=== PATIENT | male | born 1960 | race American Indian/Alaskan Native ===

== ENCOUNTER 2018-02-12 13:44 | Emergency (ER) | payer MEDICAID ==
[~2018-02-12] VITALS: Ht 193 cm; Wt 100.0 kg
[~2018-02-12 13:44] MED LIST: MECL-111 PO; SUCR1ORA2 PO
[2018-02-12 14:30] LABS: BASOPHILS # (AUTO) 0.1 X10'3 (0-0.2); BASOPHILS % (AUTO) 0.8 % (0-1); EOSINOPHILS # (AUTO) 0.1 X10'3 (0-0.9); EOSINOPHILS % (AUTO) 1.6 % (0-6); HEMATOCRIT 47.3 % (42.0-52.0); LYMPHOCYTES # (AUTO) 0.7 X10'3 (1.1-4.8); MEAN CORPUSCULAR HEMOGLOBIN 30.7 PG (27.0-31.0); MEAN CORPUSCULAR HGB CONC 33.9 % (33.0-36.5); MEAN CORPUSCULAR VOLUME 90.5 FL (78-98); MEAN PLATELET VOLUME 7.6 FL (7.4-10.4); MONOCYTES # (AUTO) 0.8 X10'3 (0-0.9); MONOCYTES % (AUTO) 10.7 % (2-12); NEUTROPHILS # (AUTO) 5.5 X10'3 (1.8-7.7); NEUTROPHILS % (AUTO) 76.9 % (42-75); PLATELET COUNT 244 X10'3 (140-440); RED BLOOD COUNT 5.22 X10'6 (4.70-6.10); RED CELL DISTRIBUTION WIDTH 12.9 % (11.5-14.5); WHITE BLOOD COUNT 7.1 X10'3 (4.5-11.0)
[2018-02-12 14:52] LABS: ALANINE AMINOTRANSFERASE 141 U/L (12-78); ALBUMIN 3.7 G/DL (3.4-5.0); ALKALINE PHOSPHATASE 169 IU/L (46-116); ANION GAP 13 (8-16); ASPARTATE AMINO TRANSFERASE 59 U/L (10-37); BILIRUBIN,TOTAL 0.7 MG/DL (0.1-1.0); BLOOD UREA NITROGEN 17 MG/DL (7-18); BUN/CREATININE RATIO 16.5 (5.4-32.0); CALCIUM 8.8 MG/DL (8.5-10.1); CHLORIDE 103 MMOL/L (99-107); CREATININE 1.03 MG/DL (0.60-1.10); GLUCOSE 90 MG/DL (70-104); SODIUM 140 MMOL/L (135-145); TOTAL CARBON DIOXIDE 23.8 MMOL/L (24-32); TOTAL PROTEIN 7.5 G/DL (6.4-8.2); eGFR 74 ML/MIN
[2018-02-12] MEDS ORDERED: meclizine 12.5mg tablet PO ONE (15:30)
[2018-02-12] MEDS ORDERED: ketorolac trometh inj. 60 MG/2 ML VIAL IM ONE (15:30)
[2018-02-12] MEDS ORDERED: MECL-111 PO (15:31)
[2018-02-12 16:22] VITALS: BP 134/91
== END 2018-02-12 16:23 | disposition home or self-care (01) ==
LOC: ER 13:45
DX: R51 Headache (principal); R42 Dizziness and giddiness; F12.10 Cannabis abuse, uncomplicated; G89.29 Other chronic pain; Z90.49 Acquired absence of other specified parts of digestive tract; Z79.899 Other long term (current) drug therapy
CPT/HCPCS: 36415; 70450; 80053; 85025; 93005; 96372; 99284; J1885; J8597

== ENCOUNTER 2018-04-05 12:34 | Outpatient (CLI) | payer MEDICAID | END 2018-04-05 23:59 | disposition home or self-care (01) | LOC: CARD DIAG 12:34 | PROVIDERS: ATTEND Internal Medicine Critical Care Medicine | DX: I07.1 Rheumatic tricuspid insufficiency (principal) | CPT/HCPCS: 93306 ==

== ENCOUNTER 2018-04-20 10:26 | Emergency (ER) | payer MEDICAID ==
[~2018-04-20] VITALS: Ht 193 cm; Wt 114.0 kg
[2018-04-20] MEDS ORDERED: ibuprofen tablet 400 MG TABLET PO ONE (12:30)
[2018-04-20 13:47] VITALS: BP 149/97
== END 2018-04-20 13:50 | disposition home or self-care (01) ==
LOC: ER 10:26
DX: S13.4XXA Sprain of ligaments of cervical spine, initial encounter (principal); M25.512 Pain in left shoulder; R07.89 Other chest pain; G89.29 Other chronic pain; F12.90 Cannabis use, unspecified, uncomplicated; Z90.49 Acquired absence of other specified parts of digestive tract; Z98.890 Other specified postprocedural states; V49.9XXA Car occupant (driver) (passenger) injured in unspecified traffic accident, initial encounter; Y93.89 Activity, other specified; Y92.488 Other paved roadways as the place of occurrence of the external cause; Y99.8 Other external cause status
CPT/HCPCS: 71045; 72040; 99283

== ENCOUNTER 2021-05-29 15:24 | Inpatient (IN) | payer MEDICAID ==
[~2021-05-29] VITALS: Ht 193 cm; Wt 109.1 kg
[~2021-05-29 15:24] MED LIST changes: -MECL-111 PO; +MECL-159 PO
--- NOTE | 2021-05-29 15:40 | NUR ---
PT MOVED TO BED 8 SBAR TO [facility].
--- NOTE | 2021-05-29 15:45 | NUR ---
TO CT SCAN.
--- NOTE | 2021-05-29 15:50 | NUR ---
TELEMED SET UP A new connect request was successfully created for: BARRY JADE : 1960 ConnectID: [id number] REASON: Code Stroke TLKW less than 4.5 hours ACUITY: Acuity Level 1 SUBMITTED: 05/29/2021 15:50 PDT
[2021-05-29 15:56] LABS: BASOPHILS # (AUTO) 0.1 X10'3 (0-0.2); BASOPHILS % (AUTO) 1.1 % (0-1); EOSINOPHILS # (AUTO) 0.1 X10'3 (0-0.9); EOSINOPHILS % (AUTO) 1.9 % (0-6); HEMATOCRIT 46.6 % (42.0-52.0); HEMOGLOBIN 15.7 g/dl (14.0-17.9); LYMPHOCYTES # (AUTO) 1.6 X10'3 (1.1-4.8); LYMPHOCYTES % (AUTO) 24.9 % (21-51); MEAN CORPUSCULAR HEMOGLOBIN 30.6 PG (27.0-31.0); MEAN CORPUSCULAR HGB CONC 33.7 g/dL (33.0-36.5); MEAN CORPUSCULAR VOLUME 90.8 FL (78-98); MONOCYTES # (AUTO) 0.5 X10'3 (0-0.9); MONOCYTES % (AUTO) 7.7 % (2-12); NEUTROPHILS # (AUTO) 4.2 X10'3 (1.8-7.7); NEUTROPHILS % (AUTO) 64.4 % (42-75); PLATELET COUNT 240 X10'3 (140-440); RED BLOOD COUNT 5.13 X10'6 (4.70-6.10); RED CELL DISTRIBUTION WIDTH 13.5 % (11.5-14.5); WHITE BLOOD COUNT 6.5 X10'3 (4.5-11.0)
[2021-05-29 16:03] LABS: APTT 29 SECONDS (22-32)
[2021-05-29 16:04] LABS: ALANINE AMINOTRANSFERASE 70 U/L (12-78); ALBUMIN 4.2 G/DL (3.4-5.0); ALBUMIN/GLOBULIN RATIO 1.4 (1.1-1.5); ALKALINE PHOSPHATASE 109 IU/L (46-116); ANION GAP 5 (8-16); ASPARTATE AMINO TRANSFERASE 36 U/L (10-37); BILIRUBIN,TOTAL 0.6 MG/DL (0.1-1.0); BLOOD UREA NITROGEN 15 MG/DL (7-18); BUN/CREATININE RATIO 15.5 (5.4-32.0); CALCIUM 8.8 MG/DL (8.5-10.1); CHLORIDE 110 MMOL/L (99-107); CREATININE 0.97 MG/DL (0.60-1.10); GLUCOSE 95 MG/DL (70-104); SODIUM 142 MMOL/L (135-145); TOTAL CARBON DIOXIDE 26.6 MMOL/L (24-32); TOTAL PROTEIN 7.2 G/DL (6.4-8.2); eGFR 78 ML/MIN
[2021-05-29 16:06] LABS: POTASSIUM 4.4 MMOL/L (3.5-5.1)
[2021-05-29] MEDS ORDERED: iohexol 350MG/ML 100ml bottle IV ONE (16:22)
--- NOTE | 2021-05-29 16:27 | NUR ---
pt went for CTA Addendum: 05/29/21 at 1628 by REYIXROSALINA pt to CTA accompanied by Stroke Nurse
--- NOTE | 2021-05-29 16:32 | NUR ---
patient back to room with stroke nurse Pippa, son at bedside.
--- NOTE | 2021-05-29 17:03 | NUR ---
MEDICAL RECORDS REQUEST FAXED TO [facility]
[2021-05-29] MEDS ORDERED: magnesium 2GM in 50ml NS 50 ML IV PRN (17:05)
[2021-05-29] MEDS ORDERED: acetaminophen 325mg tablet PO PRN ×2 (17:05)
[2021-05-29] MEDS ORDERED: metoclopramide 5 mg/ml inj IV PRN (17:05)
[2021-05-29] MEDS ORDERED: ondansetron/PF 4mg/2ml inj IV PRN (17:05)
[2021-05-29] MEDS ORDERED: potassium CL 10mEq/100ml bag 100 ML IV PRN (17:05)
[2021-05-29] MEDS ORDERED: HYDROcodone/acetaminophen 10/325mg tab PO PRN (17:05)
[2021-05-29] MEDS ORDERED: magnesium 4gm in 100ml NS 100 ML IV PRN (17:05)
[2021-05-29] MEDS ORDERED: mag hydrox/Alum hydrox/simeth 30ml oral suspension PO PRN (17:05)
[2021-05-29] MEDS ORDERED: ondansetron 4mg rapidly disintigrating tab PO PRN (17:05)
[2021-05-29] MEDS ORDERED: morphine 2 MG/ML inj. syringe IV PRN ×2 (17:05)
[2021-05-29] MEDS ORDERED: magnesium hydroxide 30ml (MOM) UD suspension PO PRN (17:05)
[2021-05-29] MEDS ORDERED: aspirin 81mg, enteric-coated 1 TAB TABLET.DR PO ONE (17:05)
[2021-05-29] MEDS ORDERED: potassium Cl 20 mEq SR tablet PO PRN ×2 (17:05)
[2021-05-29] MEDS ORDERED: magnesium Cl slow-release 64mg tablet PO PRN (17:05)
[2021-05-29] MEDS ORDERED: bisacodyl 10mg suppository rectal RC PRN (17:05)
[2021-05-29] MEDS ORDERED: HYDROcodone/acetaminophen 5mg/325mg tablet PO PRN (17:05)
[2021-05-29] MEDS ORDERED: ATOR80TA PO (17:13)
[2021-05-29] MEDS ORDERED: ASPI-101 PO (17:13)
[2021-05-29] MEDS: normal saline 1000ml 1,000 ML IV SCH (17:27)
[2021-05-29 17:45] LABS: MAGNESIUM 2.5 MG/DL (1.5-2.4)
[2021-05-29] MEDS: K and/or MAG REPLACEMENT MC SCH (20:00)
[2021-05-29] MEDS ORDERED: temazepam 15mg capsule PO PRN (21:00)
[2021-05-29 21:04] VITALS: BP 135/90
[2021-05-29] MEDS: docusate sod 100mg capsule PO SCH (21:41)
[2021-05-29 22:00] VITALS: BP 124/89
[2021-05-30 02:00] VITALS: BP 122/78
[2021-05-30] MEDS: normal saline 1000ml 1,000 ML IV SCH ×2 (03:27→13:05)
[2021-05-30 05:49] LABS: BASOPHILS % (AUTO) 0.8 % (0-1); EOSINOPHILS # (AUTO) 0.1 X10'3 (0-0.9); HEMATOCRIT 42.2 % (42.0-52.0); HEMOGLOBIN 14.3 g/dl (14.0-17.9); LYMPHOCYTES # (AUTO) 1.1 X10'3 (1.1-4.8); LYMPHOCYTES % (AUTO) 25.2 % (21-51); MEAN CORPUSCULAR HEMOGLOBIN 30.6 PG (27.0-31.0); MEAN CORPUSCULAR HGB CONC 33.9 g/dL (33.0-36.5); MEAN CORPUSCULAR VOLUME 90.4 FL (78-98); MEAN PLATELET VOLUME 7.8 FL (7.4-10.4); MONOCYTES # (AUTO) 0.3 X10'3 (0-0.9); MONOCYTES % (AUTO) 7.7 % (2-12); NEUTROPHILS # (AUTO) 2.8 X10'3 (1.8-7.7); NEUTROPHILS % (AUTO) 64.3 % (42-75); PLATELET COUNT 207 X10'3 (140-440); RED BLOOD COUNT 4.67 X10'6 (4.70-6.10); RED CELL DISTRIBUTION WIDTH 13.7 % (11.5-14.5); WHITE BLOOD COUNT 4.4 X10'3 (4.5-11.0)
[2021-05-30 06:00] VITALS: BP 112/76
[2021-05-30 06:09] LABS: ALANINE AMINOTRANSFERASE 61 U/L (12-78); ALBUMIN 3.5 G/DL (3.4-5.0); ALBUMIN/GLOBULIN RATIO 1.5 (1.1-1.5); ALKALINE PHOSPHATASE 75 IU/L (46-116); ANION GAP 10 (8-16); ASPARTATE AMINO TRANSFERASE 31 U/L (10-37); BILIRUBIN,TOTAL 0.8 MG/DL (0.1-1.0); BLOOD UREA NITROGEN 13 MG/DL (7-18); BUN/CREATININE RATIO 16.3 (5.4-32.0); CALCIUM 8.1 MG/DL (8.5-10.1); CHLORIDE 112 MMOL/L (99-107); CHOL/HDL RATIO 2.2 (0.00-4.99); CHOLESTEROL 65 MG/DL (0-200); GLUCOSE 107 MG/DL (70-104); HDL CHOLESTEROL 29 MG/DL (35-60); LDL CHOLESTEROL 31 MG/DL (50-100); MAGNESIUM 2.2 MG/DL (1.5-2.4); POTASSIUM 3.7 MMOL/L (3.5-5.1); SODIUM 145 MMOL/L (135-145); TOTAL CARBON DIOXIDE 23.5 MMOL/L (24-32); TOTAL PROTEIN 5.9 G/DL (6.4-8.2); TRIGLYCERIDES 50 MG/DL (20-135); eGFR > 90 ML/MIN
[2021-05-30] MEDS ORDERED: atorvastatin 20mg tablet PO SCH (08:00)
[2021-05-30] MEDS ORDERED: aspirin 81mg, enteric-coated 1 TAB TABLET.DR PO SCH (08:00)
[2021-05-30] MEDS: K and/or MAG REPLACEMENT MC SCH (08:00)
[2021-05-30] MEDS ORDERED: aspirin 325mg tablet, delayed-release (Ecotrin) PO SCH (08:00)
[2021-05-30] MEDS: docusate sod 100mg capsule PO SCH (09:18)
--- NOTE | 2021-05-30 11:00 | NUR ---
Pt transported to MRI via wheelchair with tech.
[2021-05-30 12:00] VITALS: BP 123/99
== END 2021-05-30 15:42 | disposition home or self-care (01) | DRG 45 ==
LOC: ER 15:25 → ED HOLD 17:09 → PCU 3S 20:45
PROVIDERS: ADMIT Family Medicine; ATTEND Family Medicine
PROC: B3251ZZ Computerized Tomography (CT Scan) of Bilateral Common Carotid Arteries using Low Osmolar Contrast (ICD-10-PCS; principal; 2021-05-29)
PROC: B32G1ZZ Computerized Tomography (CT Scan) of Bilateral Vertebral Arteries using Low Osmolar Contrast (ICD-10-PCS; 2021-05-29)
PROC: B32R1ZZ Computerized Tomography (CT Scan) of Intracranial Arteries using Low Osmolar Contrast (ICD-10-PCS; 2021-05-29)
PROC: B3281ZZ Computerized Tomography (CT Scan) of Bilateral Internal Carotid Arteries using Low Osmolar Contrast (ICD-10-PCS; 2021-05-29)
DX: I63.9 Cerebral infarction, unspecified (principal); I69.351 Hemiplegia and hemiparesis following cerebral infarction affecting right dominant side; R29.704 NIHSS score 4; E78.5 Hyperlipidemia, unspecified; G89.29 Other chronic pain; F12.90 Cannabis use, unspecified, uncomplicated; Z90.49 Acquired absence of other specified parts of digestive tract; Z79.899 Other long term (current) drug therapy
CPT/HCPCS: 36415; 70450; 70496; 70498; 70551; 71045; 80053; 80061; 82948; 83735; 84443; 84484; 85025; 85610; 85730; 87081; 92508; 92616; 93005; 99285; G0378; J7030; Q9967

== ENCOUNTER 2023-04-01 10:57 | Emergency (ER) | payer MEDICARE, MEDICAID ==
[~2023-04-01] VITALS: Ht 190.5 cm; Wt 104.9 kg
[~2023-04-01 10:57] MED LIST changes: +ASPI-101 PO; +ATOR80TA PO; -MECL-159 PO; -SUCR1ORA2 PO
[2023-04-01 11:53] LABS: BILIRUBIN,URINE NEGATIVE (Neg); COLOR,URINE YELLOW (Yellow); GLUCOSE, URINE NEGATIVE (Neg); KETONES,URINE NEGATIVE (Neg); LEUKOCYTE ESTERASE ,URINE NEGATIVE (Neg); NITRITES, URINE NEGATIVE (Neg); OCCULT BLOOD,URINE NEGATIVE (Neg); PROTEIN,URINE NEGATIVE (Neg); UROBILINOGEN,URINE 0.2 E.U/dL (0.2-1.0)
[2023-04-01 12:01] LABS: UA COLLECTION TYPE CLN CATCH MIDSTREAM
[2023-04-01 12:24] LABS: BASOPHILS # (AUTO) 0.1 X10'3 (0-0.2); BASOPHILS % (AUTO) 1.2 % (0-1); EOSINOPHILS # (AUTO) 0.1 X10'3 (0-0.9); EOSINOPHILS % (AUTO) 1.1 % (0-6); HEMATOCRIT 48.1 % (42.0-52.0); HEMOGLOBIN 16.2 g/dl (14.0-17.9); LYMPHOCYTES % (AUTO) 19.7 % (21-51); MEAN CORPUSCULAR HEMOGLOBIN 31.3 PG (27.0-31.0); MEAN CORPUSCULAR HGB CONC 33.6 g/dL (33.0-36.5); MEAN PLATELET VOLUME 7.8 FL (7.4-10.4); MONOCYTES # (AUTO) 0.3 X10'3 (0-0.9); MONOCYTES % (AUTO) 6.4 % (2-12); NEUTROPHILS # (AUTO) 3.5 X10'3 (1.8-7.7); NEUTROPHILS % (AUTO) 71.6 % (42-75); PLATELET COUNT 220 X10'3 (140-440); RED BLOOD COUNT 5.17 X10'6 (4.70-6.10); RED CELL DISTRIBUTION WIDTH 13.2 % (11.5-14.5); WHITE BLOOD COUNT 4.9 X10'3 (4.5-11.0)
[2023-04-01 12:31] LABS: CLARITY,URINE SLIGHTLY CLOUDY (Clear)
[2023-04-01 12:32] LABS: WBC CLUMPS,URINE FEW /HPF (NEGATIVE); WBC,URINE 30-50 /HPF (0-4)
[2023-04-01 12:33] LABS: BACTERIA,URINE FEW /HPF (Neg); RBC,URINE 0-2 /HPF (0-2); SQUAMOUS EPITHELIAL CELL,UR FEW /LPF (FEW)
[2023-04-01 12:48] LABS: ALBUMIN 3.9 G/DL (3.4-5.0); ANION GAP 10 (8-16); BLOOD UREA NITROGEN 16 MG/DL (7-18); CALCIUM 8.6 MG/DL (8.5-10.1); CHLORIDE 108 MMOL/L (99-107); CREATININE 0.94 MG/DL (0.60-1.10); GLUCOSE 161 MG/DL (70-104); LIPASE 51 U/L (16-77); POTASSIUM 4.3 MMOL/L (3.5-5.1); SODIUM 144 MMOL/L (135-145); TOTAL CARBON DIOXIDE 25.8 MMOL/L (24-32); eCRCL 97 ML/MIN; eGFR 81 ML/MIN
[2023-04-01] MEDS: normal saline 1000ml 1,000 ML IV ONE (20:52)
[2023-04-01] MEDS: ondansetron/PF 4mg/2ml inj IV ONE (20:53)
[2023-04-01] MEDS: morphine 4 MG/ML inj SYRINge IV ONE (20:54)
[2023-04-01] MEDS: CefTRIAXone 2gm/D5W 50ml BAG 50 ML IV ONE (21:56)
[2023-04-01] MEDS ORDERED: CEPH-585 PO (22:03)
[2023-04-01] MEDS: cloNIDine 0.1 mg tablet PO ONE (22:35)
[2023-04-01 22:45] VITALS: BP 136/95; PULSE 56; RESP 18; TEMP 98; O2SAT 98
== END 2023-04-01 22:49 | disposition home or self-care (01) ==
LOC: ER 10:58
DX: N39.0 Urinary tract infection, site not specified (principal); I71.20 Thoracic aortic aneurysm, without rupture, unspecified; N20.0 Calculus of kidney; F12.90 Cannabis use, unspecified, uncomplicated; Z79.82 Long term (current) use of aspirin; Z79.899 Other long term (current) drug therapy; Z98.890 Other specified postprocedural states; Z90.49 Acquired absence of other specified parts of digestive tract
CPT/HCPCS: 36415; 74176; 80048; 81001; 83690; 85025; 87077; 87088; 87186; 96361; 96374; 96375; 99285; J0696; J2270; J2405; J7030

== ENCOUNTER 2023-07-30 15:23 | Inpatient (IN) | payer MEDICARE, MEDICAID ==
[~2023-07-30] VITALS: Ht 190.5 cm; Wt 103.8 kg
[2023-07-30] VITALS (11 sets, daily range): BP systolic 112–124; BP diastolic 76–86; PULSE 45–57; RESP 14–20; O2SAT 94–98
[2023-07-30] MEDS ORDERED: iohexol 350MG/ML 100ml bottle IV ONE (15:26)
[2023-07-30 15:59] LABS: BASOPHILS # (AUTO) 0.1 X10'3 (0-0.2); BASOPHILS % (AUTO) 0.9 % (0-1); EOSINOPHILS # (AUTO) 0.1 X10'3 (0-0.9); EOSINOPHILS % (AUTO) 0.9 % (0-6); HEMATOCRIT 46.1 % (42.0-52.0); HEMOGLOBIN 15.5 g/dl (14.0-17.9); LYMPHOCYTES # (AUTO) 1.1 X10'3 (1.1-4.8); LYMPHOCYTES % (AUTO) 18.6 % (21-51); MEAN CORPUSCULAR HEMOGLOBIN 31.4 PG (27.0-31.0); MEAN CORPUSCULAR HGB CONC 33.6 g/dL (33.0-36.5); MEAN CORPUSCULAR VOLUME 93.3 FL (78-98); MEAN PLATELET VOLUME 7.9 FL (7.4-10.4); MONOCYTES # (AUTO) 0.4 X10'3 (0-0.9); MONOCYTES % (AUTO) 7.1 % (2-12); NEUTROPHILS # (AUTO) 4.3 X10'3 (1.8-7.7); NEUTROPHILS % (AUTO) 72.5 % (42-75); PLATELET COUNT 215 X10'3 (140-440); RED BLOOD COUNT 4.94 X10'6 (4.70-6.10); RED CELL DISTRIBUTION WIDTH 13.3 % (11.5-14.5); WHITE BLOOD COUNT 5.9 X10'3 (4.5-11.0)
[2023-07-30 16:15] LABS: ALBUMIN 4.2 G/DL (3.4-5.0); ANION GAP 10 (8-16); BLOOD UREA NITROGEN 19 MG/DL (7-18); BUN/CREATININE RATIO 15.8 (10.0-20.0); CALCIUM 8.9 MG/DL (8.5-10.1); CHLORIDE 108 MMOL/L (99-107); GLUCOSE 101 MG/DL (70-104); SODIUM 143 MMOL/L (135-145); TOTAL CARBON DIOXIDE 25.1 MMOL/L (24-32); eCRCL 73 ML/MIN; eGFR 61 ML/MIN
[2023-07-30 16:19] LABS: APTT 28 SECONDS (22-32); INR 1.1 INR
[2023-07-30] MEDS: tenecteplase-TNKase inj 10 ML IV ONE (16:20)
[2023-07-30] MEDS ORDERED: ondansetron/PF 4mg/2ml inj IV PRN (16:30)
[2023-07-30] MEDS ORDERED: acetaminophen 325mg tablet PO PRN (16:30)
[2023-07-30] MEDS ORDERED: morphine 4 MG/ML inj SYRINge IV PRN (16:30)
[2023-07-30] MEDS ORDERED: morphine 2 MG/ML inj. syringe IV PRN (16:30)
[2023-07-30] MEDS ORDERED: magnesium hydroxide 30ml (MOM) UD suspension PO PRN (16:30)
[2023-07-30] MEDS: normal saline 1000ml 1,000 ML IV SCH (17:18)
[2023-07-30] MEDS ORDERED: niCARDipine-NS 40mg/200ml IVPB 200 ML IV PRN (17:35)
[2023-07-30 19:11] LABS: HEMOGLOBIN A1C 5.8 % (4.5-6.2)
[2023-07-30] MEDS: famotidine 20mg tablet PO SCH (20:00)
[2023-07-31] VITALS (25 sets, daily range): BP systolic 98–131; BP diastolic 49–97; PULSE 41–107; RESP 10–23; TEMP 97.4; O2SAT 94–98
[2023-07-31] MEDS ORDERED: atropine 0.1mg/ml 10ml syringe ONE (01:07)
[2023-07-31 04:51] LABS: BASOPHILS % (AUTO) 1.3 % (0-1); EOSINOPHILS # (AUTO) 0.1 X10'3 (0-0.9); EOSINOPHILS % (AUTO) 2.2 % (0-6); HEMATOCRIT 43.6 % (42.0-52.0); HEMOGLOBIN 14.6 g/dl (14.0-17.9); LYMPHOCYTES % (AUTO) 28.7 % (21-51); MEAN CORPUSCULAR HEMOGLOBIN 31.2 PG (27.0-31.0); MEAN CORPUSCULAR HGB CONC 33.6 g/dL (33.0-36.5); MEAN CORPUSCULAR VOLUME 93.1 FL (78-98); MEAN PLATELET VOLUME 7.6 FL (7.4-10.4); MONOCYTES # (AUTO) 0.3 X10'3 (0-0.9); MONOCYTES % (AUTO) 8.4 % (2-12); NEUTROPHILS # (AUTO) 2.1 X10'3 (1.8-7.7); NEUTROPHILS % (AUTO) 59.4 % (42-75); PLATELET COUNT 154 X10'3 (140-440); RED BLOOD COUNT 4.69 X10'6 (4.70-6.10); RED CELL DISTRIBUTION WIDTH 13.5 % (11.5-14.5); WHITE BLOOD COUNT 3.5 X10'3 (4.5-11.0)
[2023-07-31 05:15] LABS: ALBUMIN 3.3 G/DL (3.4-5.0); ANION GAP 9 (8-16); BLOOD UREA NITROGEN 17 MG/DL (7-18); BUN/CREATININE RATIO 19.3 (10.0-20.0); CHLORIDE 110 MMOL/L (99-107); CHOL/HDL RATIO 2.2 (0.00-4.99); CHOLESTEROL 74 MG/DL (0-200); CREATININE 0.88 MG/DL (0.60-1.10); GLUCOSE 93 MG/DL (70-104); HDL CHOLESTEROL 34 MG/DL (35-60); LDL CHOLESTEROL 34 MG/DL (50-100); POTASSIUM 3.6 MMOL/L (3.5-5.1); SODIUM 143 MMOL/L (135-145); THYROID STIMULATING HORMONE 1.59 ulU/ml (0.34-4.50); TOTAL CARBON DIOXIDE 24.1 MMOL/L (24-32); TRIGLYCERIDES 40 MG/DL (20-135); eCRCL 100 ML/MIN; eGFR 87 ML/MIN
[2023-07-31] MEDS ORDERED: fentaNYL/PF 50MCG/1 ML 2ML syringe IV PRN (11:00)
[2023-07-31] MEDS ORDERED: midazolam 1 mg/ML 2ml injection IV PRN (11:00)
[2023-07-31] MEDS ORDERED: CITA20TA28 PO (11:25)
[2023-07-31] MEDS ORDERED: ASPI-1397 PO (11:25)
[2023-07-31] MEDS ORDERED: BUDE10.2 INH (11:25)
[2023-07-31] MEDS ORDERED: MAGN500C4 PO (11:25)
[2023-07-31] MEDS ORDERED: ATOR20TA66 PO (11:25)
[2023-07-31] MEDS ORDERED: CLOP-32 PO (11:25)
[2023-07-31] MEDS: acetaminophen 325mg tablet PO PRN (20:44)
[2023-07-31] MEDS: aspirin 81mg, enteric-coated 1 TAB TABLET.DR PO SCH (21:05)
[2023-07-31] MEDS: clopidogrel 75mg tablet PO SCH (21:05)
[2023-07-31] MEDS: atorvastatin 20mg tablet PO SCH (21:05)
[2023-08-01 01:40] VITALS: BP 93/55; PULSE 47; RESP 17; TEMP 98; O2SAT 93
[2023-08-01 06:45] LABS: BASOPHILS % (AUTO) 0.6 % (0-1); EOSINOPHILS # (AUTO) 0.1 X10'3 (0-0.9); EOSINOPHILS % (AUTO) 1.3 % (0-6); HEMATOCRIT 43.9 % (42.0-52.0); HEMOGLOBIN 14.9 g/dl (14.0-17.9); LYMPHOCYTES # (AUTO) 0.9 X10'3 (1.1-4.8); LYMPHOCYTES % (AUTO) 18.3 % (21-51); MEAN CORPUSCULAR HEMOGLOBIN 31.2 PG (27.0-31.0); MEAN CORPUSCULAR HGB CONC 33.9 g/dL (33.0-36.5); MONOCYTES # (AUTO) 0.3 X10'3 (0-0.9); MONOCYTES % (AUTO) 5.8 % (2-12); NEUTROPHILS # (AUTO) 3.6 X10'3 (1.8-7.7); PLATELET COUNT 172 X10'3 (140-440); RED BLOOD COUNT 4.77 X10'6 (4.70-6.10); RED CELL DISTRIBUTION WIDTH 13.3 % (11.5-14.5); WHITE BLOOD COUNT 4.8 X10'3 (4.5-11.0)
[2023-08-01 06:53] LABS: ALBUMIN 3.3 G/DL (3.4-5.0); ANION GAP 7 (8-16); BLOOD UREA NITROGEN 16 MG/DL (7-18); BUN/CREATININE RATIO 16.3 (10.0-20.0); CALCIUM 8.3 MG/DL (8.5-10.1); CHLORIDE 107 MMOL/L (99-107); CREATININE 0.98 MG/DL (0.60-1.10); GLUCOSE 106 MG/DL (70-104); SODIUM 138 MMOL/L (135-145); TOTAL CARBON DIOXIDE 24.1 MMOL/L (24-32); eCRCL 90 ML/MIN; eGFR 77 ML/MIN
[2023-08-01 07:00] VITALS: BP 91/52; PULSE 49; RESP 17; TEMP 97.4; O2SAT 98
[2023-08-01 08:00] VITALS: BP 136/93; PULSE 64; RESP 16; RESP 18; TEMP 97.3; O2SAT 99
[2023-08-01] MEDS ORDERED: atorvastatin 20mg tablet PO SCH (08:00)
[2023-08-01] MEDS ORDERED: aspirin 81mg, enteric-coated 1 TAB TABLET.DR PO SCH (08:00)
[2023-08-01 10:00] VITALS: BP 136/93; PULSE 64; RESP 18; TEMP 97.3; O2SAT 99
[2023-08-01 14:34] VITALS: BP 102/70; PULSE 57; RESP 16; TEMP 97.6; O2SAT 99
== END 2023-08-01 15:00 | disposition home or self-care (01) | DRG 62 ==
LOC: ER 15:23 → ED HOLD 16:29 → UNDOADMIN 16:29 → ED HOLD 16:32 → CICU 2S 20:24 → ED HOLD 20:24 → ORTHO 4S 07-31 19:08
PROVIDERS: ADMIT Internal Medicine Critical Care Medicine; ATTEND Internal Medicine Critical Care Medicine
PROC: 3E03317 Introduction of Other Thrombolytic into Peripheral Vein, Percutaneous Approach (ICD-10-PCS; principal; 2023-07-30)
PROC: B3251ZZ Computerized Tomography (CT Scan) of Bilateral Common Carotid Arteries using Low Osmolar Contrast (ICD-10-PCS; 2023-07-30)
PROC: B32G1ZZ Computerized Tomography (CT Scan) of Bilateral Vertebral Arteries using Low Osmolar Contrast (ICD-10-PCS; 2023-07-30)
PROC: B32R1ZZ Computerized Tomography (CT Scan) of Intracranial Arteries using Low Osmolar Contrast (ICD-10-PCS; 2023-07-30)
PROC: B3281ZZ Computerized Tomography (CT Scan) of Bilateral Internal Carotid Arteries using Low Osmolar Contrast (ICD-10-PCS; 2023-07-30)
DX: I63.9 Cerebral infarction, unspecified (principal); I69.351 Hemiplegia and hemiparesis following cerebral infarction affecting right dominant side; N17.9 Acute kidney failure, unspecified; F10.90 Alcohol use, unspecified, uncomplicated; G89.29 Other chronic pain; E78.5 Hyperlipidemia, unspecified; F41.9 Anxiety disorder, unspecified; Z90.49 Acquired absence of other specified parts of digestive tract; Z79.82 Long term (current) use of aspirin; Z79.899 Other long term (current) drug therapy
CPT/HCPCS: 36415; 70450; 70496; 70498; 70551; 71045; 80048; 80061; 80320; 82948; 83036; 84443; 84484; 85025; 85610; 85730; 87081; 92508; 92616; 93005; 93306; 96365; 97161; 97530; 99291; G0378; J0461; J3101; J3490; J7030; Q9967

== ENCOUNTER 2024-02-26 09:25 | Inpatient (IN) | payer MEDICARE, MEDICAID ==
[~2024-02-26] VITALS: Ht 193 cm; Wt 103.3 kg
[~2024-02-26 09:25] MED LIST changes: -ASPI-101 PO; +ASPI-1397 PO; +ATOR20TA66 PO; -ATOR80TA PO; +BUDE10.2 INH; +CITA20TA28 PO; +CLOP-32 PO; +MAGN500C4 PO
[2024-02-26] MEDS: LORazepam 2 mg/ml vial IV ONE (10:27)
[2024-02-26] MEDS: dexamethasone sod phosphate 10mg/ml inj IV STA (10:29)
[2024-02-26 11:07] LABS: BASOPHILS # (AUTO) 0.1 X10'3 (0-0.2); BASOPHILS % (AUTO) 1.1 % (0-1); EOSINOPHILS # (AUTO) 0.1 X10'3 (0-0.9); EOSINOPHILS % (AUTO) 1.6 % (0-6); HEMATOCRIT 44.2 % (42.0-52.0); HEMOGLOBIN 15.1 g/dl (14.0-17.9); LYMPHOCYTES # (AUTO) 0.7 X10'3 (1.1-4.8); LYMPHOCYTES % (AUTO) 12.6 % (21-51); MEAN CORPUSCULAR HEMOGLOBIN 31.7 PG (27.0-31.0); MEAN CORPUSCULAR HGB CONC 34.2 g/dL (33.0-36.5); MEAN CORPUSCULAR VOLUME 92.5 FL (78-98); MEAN PLATELET VOLUME 7.9 FL (7.4-10.4); MONOCYTES # (AUTO) 0.3 X10'3 (0-0.9); MONOCYTES % (AUTO) 6.3 % (2-12); NEUTROPHILS # (AUTO) 4.1 X10'3 (1.8-7.7); NEUTROPHILS % (AUTO) 78.4 % (42-75); PLATELET COUNT 231 X10'3 (140-440); RED BLOOD COUNT 4.78 X10'6 (4.70-6.10); RED CELL DISTRIBUTION WIDTH 12.8 % (11.5-14.5); WHITE BLOOD COUNT 5.3 X10'3 (4.5-11.0)
[2024-02-26 11:16] LABS: ALBUMIN 3.8 G/DL (3.4-5.0); ANION GAP 8 (8-16); BLOOD UREA NITROGEN 15 MG/DL (7-18); BUN/CREATININE RATIO 13.3 (10.0-20.0); CALCIUM 8.5 MG/DL (8.5-10.1); CHLORIDE 108 MMOL/L (99-107); CREATININE 1.13 MG/DL (0.60-1.10); GLUCOSE 113 MG/DL (70-104); POTASSIUM 3.8 MMOL/L (3.5-5.1); SODIUM 141 MMOL/L (135-145); TOTAL CARBON DIOXIDE 25.1 MMOL/L (24-32); eCRCL 80 ML/MIN; eGFR 65 ML/MIN
[2024-02-26] MEDS ORDERED: bisacodyl 10mg suppository rectal RC PRN (11:35)
[2024-02-26] MEDS ORDERED: metoclopramide 5 mg/ml inj IV PRN (11:35)
[2024-02-26] MEDS ORDERED: ondansetron/PF 4mg/2ml inj IV PRN (11:35)
[2024-02-26] MEDS ORDERED: ondansetron 4mg rapidly disintigrating tab PO PRN (11:35)
[2024-02-26] MEDS ORDERED: diphenhydrAMINE 25mg capsule PO PRN (11:35)
[2024-02-26] MEDS ORDERED: morphine 2 MG/ML inj. syringe IV PRN ×2 (11:35)
[2024-02-26] MEDS ORDERED: mag hydrox/Alum hydrox/simeth 30ml oral suspension PO PRN (11:35)
[2024-02-26] MEDS ORDERED: acetaminophen 650mg rectal suppository RC PRN (11:35)
[2024-02-26] MEDS ORDERED: HYDROcodone/acetaminophen 5mg/325mg tablet PO PRN (11:35)
[2024-02-26] MEDS ORDERED: magnesium hydroxide 30ml (MOM) UD suspension PO PRN (11:35)
[2024-02-26] MEDS ORDERED: diphenhydrAMINE 50 mg/ml inj IV PRN (11:35)
[2024-02-26] MEDS ORDERED: acetaminophen 325mg tablet PO PRN ×2 (11:35)
[2024-02-26 12:46] LABS: BILIRUBIN,URINE NEGATIVE (Neg); CLARITY,URINE CLEAR (Clear); COLOR,URINE STRAW (Yellow); GLUCOSE, URINE NEGATIVE (Neg); KETONES,URINE NEGATIVE (Neg); LEUKOCYTE ESTERASE ,URINE NEGATIVE (Neg); NITRITES, URINE NEGATIVE (Neg); OCCULT BLOOD,URINE NEGATIVE (Neg); PH,URINE 6.5 (4.8-8.0); PROTEIN,URINE NEGATIVE (Neg); UROBILINOGEN,URINE 0.2 E.U/dL (0.2-1.0)
[2024-02-26 12:48] LABS: UA COLLECTION TYPE URINAL
[2024-02-26] MEDS ORDERED: acetaminophen 1,000mg/100ml IV 100 ML IV PRN (13:00)
[2024-02-26] MEDS ORDERED: ketorolac trometh 15mg/ml vial 15 MG/ML ML IV PRN (13:00)
[2024-02-26 13:18] LABS: URINE AMPHETAMINE SCREEN NEGATIVE (Neg); URINE BARBITUATE SCREEN NEGATIVE (Neg); URINE BENZODIAZEPINES SCREEN NEGATIVE (Neg); URINE CANNABINOID SCREEN NEGATIVE (Neg); URINE COCAINE SCREEN NEGATIVE (Neg); URINE METHADONE SCREEN NEGATIVE (Neg); URINE OPIATE SCREEN NEGATIVE (Neg); URINE PHENCYCLIDINE SCREEN NEGATIVE (Neg)
[2024-02-26 13:26] LABS: APTT 29 SECONDS (22-32); INR 1.1 INR; PROTHROMBIN TIME 11.1 SECONDS (9.0-12.0)
[2024-02-26 13:44] LABS: MAGNESIUM 2.1 MG/DL (1.5-2.4); PHOSPHORUS 2.5 MG/DL (2.3-4.5)
[2024-02-26] MEDS: normal saline 1000ml 1,000 ML IV SCH (13:55)
[2024-02-26] MEDS: heparin, porcine 5000 units/ml vial SQ SCH (16:24)
[2024-02-26 19:05] VITALS: BP 134/92; PULSE 61; RESP 16; TEMP 97.6; O2SAT 96
[2024-02-26] MEDS: docusate sod 100mg capsule PO SCH (19:45)
[2024-02-26] MEDS: HYDROcodone/acetaminophen 10/325mg tab PO PRN (19:55)
[2024-02-26 20:00] VITALS: RESP 16; O2SAT 96
[2024-02-26] MEDS ORDERED: temazepam 15mg capsule PO PRN (21:00)
[2024-02-26 22:00] VITALS: BP 109/71; PULSE 63; RESP 18; TEMP 97.7; O2SAT 93
[2024-02-26] MEDS: HYDROmorphone inj. 0.5 MG/0.5 ML DISP.SYRIN IV PRN (22:45)
[2024-02-27 06:00] VITALS: BP 99/60; PULSE 59; RESP 17; TEMP 97.7; O2SAT 94
[2024-02-27] MEDS: pantoprazole 40mg Tablet.DR PO SCH (07:56)
[2024-02-27 08:00] VITALS: RESP 16; O2SAT 97
[2024-02-27 10:00] VITALS: BP 103/65; PULSE 95; RESP 15; TEMP 97.8; O2SAT 98
[2024-02-27] MEDS ORDERED: cyclobenzaprine 10mg tablet PO PRN (11:10)
[2024-02-27] MEDS: LIDOcaine 5% patch TP SCH (14:17)
[2024-02-27] MEDS ORDERED: iohexol 350MG/ML 100ml bottle IV ONE (15:44)
[2024-02-27] MEDS ORDERED: CYCL-1 PO (17:25)
[2024-02-27] MEDS ORDERED: LIDOcaine 5% patch TP SCH (20:00)
== END 2024-02-27 18:10 | disposition home or self-care (01) | DRG 552 ==
LOC: ER 09:26 → ED HOLD 11:52 → ORTHO 4S 19:02
PROVIDERS: ADMIT Family Medicine; ATTEND Family Medicine
PROC: B32T1ZZ Computerized Tomography (CT Scan) of Left Pulmonary Artery using Low Osmolar Contrast (ICD-10-PCS; principal; 2024-02-27)
PROC: B3201ZZ Computerized Tomography (CT Scan) of Thoracic Aorta using Low Osmolar Contrast (ICD-10-PCS; 2024-02-27)
PROC: B32S1ZZ Computerized Tomography (CT Scan) of Right Pulmonary Artery using Low Osmolar Contrast (ICD-10-PCS; 2024-02-27)
DX: M54.32 Sciatica, left side (principal); I50.32 Chronic diastolic (congestive) heart failure; M54.16 Radiculopathy, lumbar region; I11.0 Hypertensive heart disease with heart failure; M48.061 Spinal stenosis, lumbar region without neurogenic claudication; R16.1 Splenomegaly, not elsewhere classified; I71.20 Thoracic aortic aneurysm, without rupture, unspecified; M62.830 Muscle spasm of back; E78.5 Hyperlipidemia, unspecified; Z79.82 Long term (current) use of aspirin; Z79.899 Other long term (current) drug therapy; Z79.01 Long term (current) use of anticoagulants; Z86.73 Personal history of transient ischemic attack (TIA), and cerebral infarction without residual deficits; Z90.49 Acquired absence of other specified parts of digestive tract; Z87.442 Personal history of urinary calculi
CPT/HCPCS: 36415; 71275; 72131; 72148; 74174; 80048; 80305; 81003; 83735; 83880; 84100; 85025; 85610; 85730; 87081; 97110; 97116; 97162; 99285; G0378; J1100; J1171; J1644; J2060; J7030; Q9967